=== PATIENT | female | born 1960 | race African-American/Black ===

== ENCOUNTER 2019-05-26 04:42 | Emergency (ER) | payer BC, OTHER ==
[2019-05-26] MEDS ORDERED: ONDANSETRON 4 MG TAB.RAPDIS PO ONE (05:36)
[2019-05-26] MEDS ORDERED: OXYCODONE-ACETAMINOPHEN 5-325 MG TABLET PO ONE (05:36)
--- NOTE | 2019-05-26 05:38 | ER Document Report ---
ED General - General Chief Complaint: Arm Pain Stated Complaint: LEFT ARM PAIN AND SWOLLEN Time Seen by Provider: 05/26/19 05:27 Primary Care Provider: LIT MINER MD [ACTIVE STAFF] - Follow up in 1 week Notes: Patient is a 58-year-old female that comes to the emergency department for chief complaint of left shoulder and left arm pain. Pain is in mainly at the deltoid (she points) and back towards the scapula (she also points). She states this started yesterday with a general soreness, progressively worsened until today it became unbearable and she could not sleep. She states now she cannot lift her left arm over her head. 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 She denies swelling, numbness, neck pain, headache, chest pain, shortness of breath, nausea, vomiting, fever/chills. She is treated for hypertension. She denies any other home medications. She denies smoking, recent travel, history of blood clots, or any other complaints. - Related Data Allergies/Adverse Reactions: tramadol Allergy (Verified 05/26/19 05:01) Past Medical History - General Information source: Patient - Social History Smoking Status: Never Smoker Frequency of alcohol use: None Drug Abuse: None Lives with: Family Family History: Reviewed & Not Pertinent Patient has suicidal ideation: No Patient has homicidal ideation: No - Past Medical History Cardiac Medical History: Reports: Hx Hypertension - Immunizations Immunizations up to date: Yes Hx Diphtheria, Pertussis, Tetanus Vaccination: Yes Review of Systems - Review of Systems Constitutional: No symptoms reported EENT: No symptoms reported Cardiovascular: See HPI Respiratory: No symptoms reported Gastrointestinal: No symptoms reported Genitourinary: No symptoms reported Female Genitourinary: No symptoms reported Musculoskeletal: See HPI Skin: No symptoms reported Hematologic/Lymphatic: No symptoms reported Neurological/Psychological: No symptoms reported Physical Exam - Vital signs Vitals: Temp Pulse Resp BP Pulse Ox 98.1 F 89 20 174/107 H 100 05/26/19 04:57 05/26/19 04:57 05/26/19 04:57 05/26/19 04:57 05/26/19 04:57 - Notes Notes: GENERAL: Patient appears uncomfortable, she is tearful, she is holding her left arm close to her body. She appears to have pain with movement. HEAD: Normocephalic, atraumatic. EYES: Pupils equal, round, and reactive to light. Extraocular movements intact. ENT: Oral mucosa moist, tongue midline. Oropharynx unremarkable. Airway patent. NECK: Full range of motion. Supple. Trachea midline. No lymphadenopathy. LUNGS: Clear to auscultation bilaterally, no wheezes, rales, or rhonchi. No respiratory distress. Tender over the left lateral chest wall at the top of the left pectoral muscle. No erythema, swelling, crepitus. Main tenderness is over the supraspinatus, deltoid, and posterior shoulder. HEART: Regular rate and rhythm. No murmur ABDOMEN: Soft, non-tender. Non-distended. EXTREMITIES: Moves all 4 extremities spontaneously. No edema noted, normal radial and dorsalis pedis pulses bilaterally. No cyanosis. 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 Patie nt does have tenderness over the left deltoid and supraspinatus along with the left parascapular and trapezius muscles. Patient is unable to raise her left arm up over her head, pain with range of motion in both active and passive range of motion. Normal distal neurovascular exam. BACK: no cervical, thoracic, lumbar midline tenderness. No saddle anesthesia, normal distal neurovascular exam. NEUROLOGICAL: Alert and oriented x3. Normal speech. Cranial nerves II through XII grossly intact. Strength 5/5 in all extremities. PSYCH: Anxious, tearful SKIN: Warm, dry, normal turgor. No rashes or lesions noted. Course - Re-evaluation Re-evalutation: Troponin is nonelevated, EKG with no ischemic changes, chest x-ray normal, CBC, chemistry unremarkable. X-ray does show multiple degenerative changes with calcific tendinitis, Bankart lesion. I discussed these details with patient at length, provided her with a copy report, placed in sling for comfort, discussed care, orthopedic follow-up, and return precautions. Based on her specific exam and work-up I have very low suspicion of acute intrathoracic etiology. Provided with work release after discussion. Answered all questions to the best my ability. Patient states appreciation and agreement with plan. Stable and well- appearing at time of discharge. - Vital Signs Vital signs: Temp Pulse Resp BP Pulse Ox 98.3 F 71 18 145/71 H 97 04/07/20 06:38 05/26/19 06:38 05/26/19 06:38 05/26/19 06:38 05/26/19 06:38 - Laboratory Result Diagrams: 05/26/19 05:40 05/26/19 05:40 Laboratory results interpreted by me: 05/26/19 05/26/19 05:40 05:40 Hct 35.3 L RDW 14.1 H Glucose 117 H - EKG Interpretation by Me Additional EKG results interpreted by me: EKG shows sinus rhythm at a rate of 80, QTC of 443, SC interval of 168. Normal axis. No T wave inversions or ST segment changes in consecutive leads. Machine reads as normal. Procedures - Immobilization Left arm/shoulder Pre-Proc Neuro Vasc Exam: Normal Immobilizer type: Sling Performed by: RN Post-Proc Neuro Vasc Exam: Normal Alignment checked and good: Yes Discharge - Discharge Clinical Impression: Left shoulder pain Qualifiers: Chronicity: acute Qualified Code(s): M25.512 - Pain in left shoulder Condition: Stable Disposition: HOME, SELF-CARE Additional Instructions: Your shoulder does show significant degenerative changes along with causes for tendinitis. This appears to have been inflamed and is causing pain along your rotator cuff. I recommend ice 3-4 times a day to the area, the sling for comfort, remember to take out your arm to perform range of motion several times a day to avoid stiffening of the shoulder. Take the anti-inflammatory as prescribed, take the pain medication only if needed, I recommend you take [id number] MiraLAX or similar medication to avoid constipation if you do. You will likely need orthopedics management for your shoulder or symptoms will continue, please call the listed referral for close follow-up. Return if you worsen including severe worsening pain, fever, chest pain, passing out, or any other concerning symptoms. Prescriptions: Naproxen 500 mg PO BID PRN #14 tablet PRN Reason: Oxycodone HCl/Acetaminophen [Percocet 5-325 mg Tablet] 1 - 2 tab PO TID PRN #12 tablet PRN Reason: Forms: Elevated Blood Pressure, Return to Work Referrals: LIT MINER MD [ACTIVE STAFF] - Follow up in 1 week
[2019-05-26 06:00] LABS: ABSOLUTE EOSINOPHILS # (AUTO) 0.2 10^3/uL (0.0-0.6); ABSOLUTE LYMPHOCYTES (AUTO) 2.5 10^3/uL (0.5-4.7); ABSOLUTE MONOCYTES (AUTO) 0.4 10^3/uL (0.1-1.4); ABSOLUTE NEUT (AUTO) 2.8 10^3/uL (1.7-8.2); BASOPHILS % (AUTO) 0.6 % (0-2); EOSINOPHILS % (AUTO) 2.6 % (0-6); HEMATOCRIT 35.3 % (36.0-47.0); HEMOGLOBIN 12.1 g/dL (12.0-15.5); LYMPHOCYTES % (AUTO) 42.3 % (13-45); MEAN CORPUSCULAR HEMOGLOBIN 29.9 pg (27.0-33.4); MEAN CORPUSCULAR HGB CONC 34.4 g/dL (32.0-36.0); MEAN CORPUSCULAR VOLUME 87 fl (80-97); MONOCYTES % (AUTO) 6.3 % (3-13); PLATELET COUNT 180 10^3/uL (150-450); RED BLOOD COUNT 4.06 10^6/uL (3.72-5.28); RED CELL DISTRIBUTION WIDTH 14.1 % (11.5-14.0); SEGMENTED NEUTROPHILS % (AUTO) 48.2 % (42-78); TOTAL CELLS COUNTED % (AUTO) 100 %; WHITE BLOOD COUNT 5.8 10^3/uL (4.0-10.5)
[2019-05-26 06:09] LABS: ALBUMIN 4.5 g/dL (3.5-5.0); ALKALINE PHOSPHATASE 108 U/L (38-126); ANION GAP 8 (5-19); ASPARTATE AMINO TRANSFERASE 20 U/L (14-36); BILIRUBIN,DIRECT 0.3 mg/dL (0.0-0.4); BILIRUBIN,TOTAL 0.3 mg/dL (0.2-1.3); BLOOD UREA NITROGEN 20 mg/dL (7-20); CALCIUM 9.7 mg/dL (8.4-10.2); CARBON DIOXIDE 26 mmol/L (22-30); CHLORIDE 104 mmol/L (98-107); CREATINE KINASE 118 U/L (30-135); GLUCOSE 117 mg/dL (75-110); POTASSIUM 4.2 mmol/L (3.6-5.0); TOTAL PROTEIN 7.7 g/dL (6.3-8.2)
--- NOTE | 2019-05-26 06:53 | RADIOLOGY REPORT (SQ) ---
EXAM DESCRIPTION: XR CHEST 1 VIEW COMPLETED DATE/TME: 05/26/2019 05:36 CLINICAL HISTORY: 58 years Female, chest/shoulder pain COMPARISON: None. NUMBER OF VIEWS/TECHNIQUE: 1/AP FINDINGS: Adequate lung volume, clear parenchyma, normal cardiac silhouette, and intact bony thorax. IMPRESSION: No acute cardiopulmonary findings.
--- NOTE | 2019-05-26 07:00 | RADIOLOGY REPORT (SQ) ---
EXAM DESCRIPTION: XR SHOULDER 2 OR MORE VIEWS COMPLETED DATE/TME: 05/26/2019 05:36 CLINICAL HISTORY: 58 years Female, sharp pain, ? injury COMPARISON: None. Findings: Moderate osteophytes of the left glenohumeral joint. Calcific tendinitis involves the left rotator cuff. Small fragmented calcifications measure up to 0.67 m at the inferior aspect of the left glenoid and may indicate bony Bankart injury. Bones, joints, and soft tissues of the LEFT XR SHOULDER 2 OR MORE VIEWS appear otherwise unremarkable. IMPRESSION: 1. Calcific tendinitis of the left rotator cuff. 2. Left Bankart lesion suggestive of prior dislocation with labral injury. 3. Mild/moderate osteoarthritis.
[2019-05-26] MEDS ORDERED: HYDROCODONE/ACETAMINOPHEN 5-325 MG (6 TAB/ER DISP) PO PRN (07:06)
[2019-05-26 07:59] VITALS: BP 134/74
--- NOTE | 2019-05-26 08:03 | EKG REPORT ---
SEVERITY:- NORMAL ECG - SINUS RHYTHM : Confirmed by: Gill Rivera MD 26-May-2019 08:02:14
== END 2019-05-26 07:55 | disposition home or self-care (01) ==
LOC: ER 04:42
DX: M75.32 Calcific tendinitis of left shoulder (principal); M19.012 Primary osteoarthritis, left shoulder; M79.18 Myalgia, other site; I10 Essential (primary) hypertension; Z88.6 Allergy status to analgesic agent
CPT/HCPCS: 93005; 99284; 36415; 82550; 85025; 80053; 84484; 71045; 73030; 93010; S0119